=== PATIENT | female | born 1995 | race Two or more races ===

== ENCOUNTER → 2023-11-17 | Emergency (ER) | payer OTHER ==
[~2023-11-17] VITALS: Ht 175.3 cm; Wt 90.7 kg
[~2023-11-17] MED LIST: 0.9 % SODIUM CHLORIDE 1,000 ML IV STA; CIPRO500 MG PO; DICYCLOMINE HCL 10 MG CAPSULE PO ONE; DICYCLOMINE HCL 10 MG CAPSULE PO STA; FLAGYL375 MG PO; HYOSCYAMINE SULFATE 0.125 MG TAB.SUBL ONE; HYOSCYAMINE SULFATE 0.125 MG TAB.SUBL SL ONE
[2023-11-17 06:26] LABS: HEMOGLOBIN 12.8 g/dL (12.0-15.00); MEAN CELL VOLUME 75.2 fL (80.00-100.00); MEAN CORPUSCULAR HEMOGLOBIN 25.9 pg (27.00-32.0); MEAN CORPUSCULAR HGB CONC 34.5 g/dl (32.0-36.0); PLATELET COUNT 316 K/uL (150-450); RED BLOOD COUNT 4.93 M/uL (4.00-6.00); RED CELL DISTRIBUTION WIDTH 16.2 % (11.5-14.5)
[2023-11-17 06:35] LABS: INR 1.1; PARTIAL THROMBOPLASTIN TIME 30.8 SECONDS (22.0-34.0); PROTHROMBIN TIME 11.5 SECONDS (9.0-11.5)
[2023-11-17 06:39] LABS: ALBUMIN 3.8 gm/dL (3.4-5.0); BILIRUBIN TOTAL 0.76 mg/dL (0.3-1.2); CALCIUM 9.4 mg/dL (8.5-10.1); CREATININE SERUM 0.82 mg/dL (0.55-1.02); GFR 82.42; GLOBULINA 3.9 G/DL (2.4-3.5); POTASSIUM 3.71 mEq/L (3.5-5.1); TOTAL PROTEIN 7.7 gm/dL (6.4-8.2)
== END | disposition home or self-care (01) ==
LOC: ER 04:17
DX: R10.9 Unspecified abdominal pain (principal); Z87.898 Personal history of other specified conditions; R14.0 Abdominal distension (gaseous)

== ENCOUNTER 2023-11-30 17:08 | Emergency (ER) | payer OTHER ==
[~2023-11-30] VITALS: Ht 175.3 cm; Wt 86.2 kg
[~2023-11-30 17:08] MED LIST changes: -0.9 % SODIUM CHLORIDE 1,000 ML IV STA; -DICYCLOMINE HCL 10 MG CAPSULE PO ONE; -DICYCLOMINE HCL 10 MG CAPSULE PO STA; -HYOSCYAMINE SULFATE 0.125 MG TAB.SUBL ONE; -HYOSCYAMINE SULFATE 0.125 MG TAB.SUBL SL ONE
[2023-11-30] MEDS ORDERED: HYOSCYAMINE SULFATE 0.125 MG TAB.SUBL SL ONE (17:45)
[2023-11-30] MEDS ORDERED: KETOROLAC TROMETHAMINE 15 MG VIAL IV ONE (17:45)
[2023-11-30] MEDS ORDERED: FAMOTIDINE/PF 20 MG/2 ML VIAL IV PUSH ONE (17:45)
[2023-11-30] MEDS ORDERED: KETOROLAC TROMETHAMINE 30 MG VIAL ONE (17:47)
[2023-11-30] MEDS ORDERED: HYOSCYAMINE SULFATE 0.125 MG TAB.SUBL ONE (17:47)
[2023-11-30] MEDS ORDERED: FAMOTIDINE/PF 20 MG/2 ML VIAL ONE (17:47)
[2023-11-30 18:17] LABS: PH,URINE 6.5 (5.0-8.0); URINE APPEARANCE Turbid; URINE BILIRRUBIN Negative (NEGATIVE); URINE BLOOD Moderate; URINE COLOR Yellow; URINE GLUCOSE Negative (NEGATIVE); URINE KETONE Trace (NEGATIVE); URINE LEUKOCYTE Moderate; URINE NITRATE Negative; URINE PROTEIN Negative (NEGATIVE)
[2023-11-30 18:20] LABS: URINE RBC 397.6 uL (0.0-20.8); URINE WBC 83.1 uL (0.0-23.2)
[2023-11-30 18:31] LABS: HEMATOCRIT 36.9 % (36.0-45.00); HEMOGLOBIN 12.2 g/dL (12.0-15.00); MEAN CORPUSCULAR HEMOGLOBIN 24.7 pg (27.00-32.0); PLATELET COUNT 318 K/uL (150-450); RED BLOOD COUNT 4.92 M/uL (4.00-6.00); RED CELL DISTRIBUTION WIDTH 16.8 % (11.5-14.5)
[2023-11-30 18:43] LABS: ALBUMIN 3.7 gm/dL (3.4-5.0); BILIRUBIN TOTAL 0.48 mg/dL (0.3-1.2); CALCIUM 9.2 mg/dL (8.5-10.1); CREATININE SERUM 0.78 mg/dL (0.55-1.02); GFR 87.32; GLOBULINA 3.6 G/DL (2.4-3.5); POTASSIUM 3.49 mEq/L (3.5-5.1); TOTAL PROTEIN 7.3 gm/dL (6.4-8.2)
[2023-11-30 20:53] LABS: URINE BACTERIA > 9821.5 uL (0.0-1933); URINE CAST 0.76 uL (0.0-1.40); URINE EPITHELIAL CELLS > 201.7 uL (0.0-38.8)
== END 2023-11-30 21:39 | disposition home or self-care (01) ==
LOC: ER 17:09
PROVIDERS: General Practice
DX: R10.9 Unspecified abdominal pain (principal); Z88.9 Allergy status to unspecified drugs, medicaments and biological substances

== ENCOUNTER 2024-07-02 19:13 | Emergency (ER) | payer OTHER ==
[~2024-07-02] VITALS: Ht 175.3 cm; Wt 74.8 kg
[2024-07-02 19:20] VITALS: BP 123/80; O2SAT 100
[2024-07-02] MEDS ORDERED: PHENAZOPYRIDINE HCL 100 MG TABLET PO ONE ×2 (21:15→21:28)
[2024-07-02] MEDS ORDERED: NITROFURANTOIN MONOHYD/M-CRYST 100 MG CAPSULE PO ONE (21:15)
[2024-07-02 21:51] LABS: HEMATOCRIT 40.4 % (36.0-45.00); HEMOGLOBIN 13.4 g/dL (12.0-15.00); MEAN CELL VOLUME 74.9 fL (80.00-100.00); MEAN CORPUSCULAR HEMOGLOBIN 24.9 pg (27.00-32.0); MEAN CORPUSCULAR HGB CONC 33.2 g/dl (32.0-36.0); PLATELET COUNT 328 K/uL (150-450); RED BLOOD COUNT 5.39 M/uL (4.00-6.00); RED CELL DISTRIBUTION WIDTH 16.3 % (11.5-14.5)
[2024-07-02 22:14] LABS: CREATININE SERUM 0.68 mg/dL (0.55-1.02); GFR 101.59; POTASSIUM 3.62 mEq/L (3.5-5.1)
[2024-07-02 23:28] LABS: URINE APPEARANCE Clear; URINE BILIRRUBIN Negative (NEGATIVE); URINE BLOOD Negative; URINE COLOR Yellow; URINE GLUCOSE Negative (NEGATIVE); URINE KETONE Negative (NEGATIVE); URINE LEUKOCYTE Negative; URINE NITRATE Negative; URINE PROTEIN Negative (NEGATIVE); URINE UROBILINOGEN 0.2 E.U./dl
[2024-07-02 23:33] LABS: URINE BACTERIA 1226.3 uL (0.0-1933); URINE EPITHELIAL CELLS 75.1 uL (0.0-38.8); URINE RBC 2.7 uL (0.0-20.8); URINE WBC 7.1 uL (0.0-23.2)
== END 2024-07-02 23:44 | disposition home or self-care (01) ==
LOC: ER 19:16
PROVIDERS: Emergency Medicine
DX: N39.0 Urinary tract infection, site not specified (principal); Z88.8 Allergy status to other drugs, medicaments and biological substances